=== PATIENT | male | born 1960 | race Caucasian/White ===

== ENCOUNTER → 2018-07-30 | Outpatient (CLI) | payer OTHER ==
--- NOTE | 2018-07-30 12:22 | PCVCIMAG ---
APPROVED REPORT Study performed: 07/30/2018 07:58:03 EXAM: Comprehensive 2D, Doppler, and color-flow Echocardiogram Patient Location: Echo lab Status: routine BSA: 2.38 HR: 64 bpmBP: 142/90 mmHg Rhythm: NSR Other Information Study Quality: Good Risk Factors: Cardiac Risk Factors: Hyperlipidemia, HTN Indications Pre-Op 2D Dimensions IVSd: 13.09 (7-11mm)LVOT Diam: 22.00 (18-24mm) LVDd: 47.83 mm PWd: 12.94 (7-11mm)Ascending Ao: 33.68 (22-36mm) LVDs: 31.91 (25-40mm) Left Atrium: 36.25 (27-40mm) Aortic Root: 32.28 mm LV Single Plane 4CH: 64.03 % LV Single Plane 2CH: 62.44 % Biplane EF: 62.9 % Volumes Left Atrial Volume (Systole) Single Plane 4CH: 44.26 mLSingle Plane 2CH: 52.58 mL LA ESV Index: 22.00 mL/m2 Aortic Valve AoV Peak Cullen.: 1.74 m/s AO Peak Gr.: 12.11 mmHgLVOT Max P.93 mmHg LVOT Max V: 0.99 m/s PACO Vmax: 2.25 cm2 Mitral Valve E/A Ratio: 1.5 MV Decel. Time: 251.34 ms MV E Max Cullen.: 0.94 m/s MV A Cullen.: 0.61 m/s IVRT: 83.04 ms TDI E/Lateral E': 11.75E/Medial E': 11.75 Medial E' Cullen.: 0.08 m/s Lateral E' Cullen.: 0.08 m/s Pulmonary Valve PV Peak Cullen.: 0.89 m/sPV Peak Gr.: 3.19 mmHg Pulmonary Vein P Vein S: 0.50 m/sP Vein A: 0.27 m/s P Vein D: 0.49 m/sP Vein A Dur.: 96.9 msec P Vein S/D Ratio: 1.02 Tricuspid Valve TR Peak Cullen.: 2.86 m/sRAP Estimate: 7.00 mmHg TR Peak Gr.: 32.67 mmHg PA Pressure: 40.00 mmHg Left Ventricle The left ventricle is normal size. There is normal LV segmental wall motion. Mild to moderate concentric left ventricular hypertrophy. Left ventricular systolic function is normal. The left ventricular ejection fraction is within the normal range. LVEF is 60-65%. Grade II - pseudonormal filling dynamics. Right Ventricle Right ventricle is borderline dilated. The right ventricular systolic function is normal. Atria The left atrium size is normal. Right atrium is mildly dilated. Aortic Valve The aortic valve is normal in structure. No aortic regurgitation is present. There is no aortic valvular stenosis. Mitral Valve The mitral valve is normal in structure. Trace to mild mitral regurgitation. No evidence of mitral valve stenosis. Tricuspid Valve The tricuspid valve is normal in structure. Trace tricuspid regurgitation. Pulmonary artery pressure is 40 mmHg. Pulmonic Valve The pulmonary valve is normal in structure. Trace pulmonic regurgitation. Great Vessels The aortic root is normal in size. IVC is normal in size and collapses >50% with inspiration. Pericardium There is no pericardial effusion. <Conclusion> The left ventricle is normal size. LVEF is 60-65%. The aortic valve is normal in structure. The mitral valve is normal in structure. Trace to mild mitral regurgitation. The tricuspid valve is normal in structure. Trace tricuspid regurgitation. Pulmonary artery pressure is 40 mmHg. The pulmonary valve is normal in structure. Trace pulmonic regurgitation. There is no pericardial effusion.
== END | disposition home or self-care (01) ==
LOC: PCVCIMAG 07:59
PROVIDERS: ATTEND Internal Medicine
DX: Z01.818 Encounter for other preprocedural examination (principal); I10 Essential (primary) hypertension; G47.33 Obstructive sleep apnea (adult) (pediatric)
CPT/HCPCS: 93306